=== PATIENT | male | born 1950 | race Caucasian/White ===

== ENCOUNTER → 2017-04-29 | Outpatient (CLI) | payer MEDICARE ==
[~2017-04-29] MED LIST: /METO25TAB PO; /WARF25TA PO; ACET50TA PO; BAYE325T12; FISH1200; MULTTAB22 PO; PRAV80TA2 PO; ULTR50TA PO; ZOFR4SOL PO
--- NOTE | 2017-04-29 14:50 | REP ---
MAXILLOFACIAL CT WITHOUT CONTRAST: HISTORY: Nasal polyps. There is complete opacification of the left maxillary sinus. There is erosion of the left uncinate process and partial erosion left middle nasal turbinate. Soft tissue density is present in the nasal passage at this level. Moderate mucosal thickening is present in the right maxillary sinus. The remaining sinuses are clear. Mucosal thickening involves the right ostiomeatal unit. The middle and inferior nasal turbinates are partially paradoxical. There is mild deviation of the nasal septum to the left. A spur is present arising from the left side of the nasal septum. The cribriform plate, medial dejesus of the orbits and optic canals are intact. There is aeration of the left anterior clinoid process. The carotid canals form a segment of the posterolateral dejesus of the sphenoid sinus. IMPRESSION: 1. There is complete opacification of the left maxillary sinus. There is associated erosion of the left uncinate process and partial erosion of the left middle nasal turbinate. Soft tissue density is present in the nasal passage at this level. This may represent a nasal polyp and mucosal thickening. The possibility of an antral choanal polyp cannot be excluded. 2. Right maxillary sinus mucosal thickening. Signed by Bal Correa MD 04/29/2017 02:54 P
== END ==
LOC: M RAD 13:42
PROVIDERS: ATTEND Otolaryngology
DX: J33.0 Polyp of nasal cavity (principal)

== ENCOUNTER → 2017-06-15 | Outpatient (CLI) | payer MEDICARE ==
--- NOTE | 2017-06-15 08:30 | REP ---
MAXILLOFACIAL CT WITHOUT CONTRAST: HISTORY: Chronic maxillary sinusitis. Mucosal thickening is present in the maxillary, ethmoid and right frontal sinuses. There is almost complete opacification of the maxillary sinuses. Minimal mucosal thickening is present in the ethmoid and right frontal sinuses. The remaining sinuses are clear. Mucosal thickening involves the ostiomeatal units. The uncinate processes are not completely seen. This is due to previous surgery or demineralization secondary to chronic sinusitis. The middle and inferior nasal turbinates are partially paradoxical. There is kailee bullosa of the middle nasal turbinates. There is minimal deviation of the nasal septum to the left. A spur is present arising from the left side of the nasal septum. The cribriform plate, medial dejesus of the orbits and optic canals are intact. There is aeration of the left anterior clinoid process. The carotid canals form a segment of the posterolateral dejesus of the sphenoid sinus. The sphenoid sinus septa insert into the internal carotid canal dejesus. There is thickening of the dejesus of the maxillary sinuses secondary to chronic sinusitis. IMPRESSION: Sinus mucosal thickening as described above. Signed by Bal Correa MD 06/15/2017 08:40 A
== END ==
LOC: M RAD 07:18
PROVIDERS: ATTEND Otolaryngology
DX: J32.0 Chronic maxillary sinusitis (principal)

== ENCOUNTER → 2017-11-30 | Outpatient (CLI) | payer MEDICARE ==
[2017-11-30 16:13] LABS: BASO % 0.7 % (0.0-1.0); EOS # 0.1 10^3/uL (0.0-0.50); EOS % 1.7 % (0.0-3.0); HEMATOCRIT 44.4 % (42.0-52.0); HEMOGLOBIN 15.1 g/dl (14.0-18.0); IMMATURE GRANULOCYTE % 0.5 % (0-3.0); LYMPH # 1.5 10^3/uL (1.5-4.5); LYMPH % 25.1 % (24.0-44.0); MEAN CORPUSCULAR HEMOGLOBIN 29.3 pg (27.0-33.0); MEAN CORPUSCULAR VOLUME 86.2 fl (80.0-96.0); MONO # 0.9 10^3/uL (0.0-0.8); MONO % 14.4 % (0.0-5.0); NEUTROPHILS # 3.4 10^3/uL (1.8-7.7); NEUTROPHILS % 57.6 % (36.0-66.0); PLATELET COUNT, AUTOMATED 232 10^3/uL (150-450); RED BLOOD COUNT 5.15 10^6/uL (4.30-6.10); RED CELL DISTRIBUTION WIDTH 12.7 % (11.5-14.5); WHITE BLOOD COUNT 5.9 10^3/uL (4.0-10.0)
[2017-11-30 16:27] LABS: URIC ACID 4.4 MG/DL (3.5-7.2)
== END ==
LOC: M WUC 11:30
DX: M19.041 Primary osteoarthritis, right hand (principal)
CPT/HCPCS: 84550

== ENCOUNTER 2017-12-09 07:05 | Day surgery (SDC) | payer MEDICARE ==
[2017-12-09] MEDS: LIDOCAINE 1% MDV 20ML VIAL SQ (07:50)
[2017-12-09] MEDS ORDERED: fentaNYL 250 MCG/5 ML INJECTION (J3010) As Ordered (08:03)
[2017-12-09] MEDS ORDERED: PROPOFOL 200 MG/20 ML VIAL As Ordered (08:03)
[2017-12-09] MEDS ORDERED: ROCURONIUM BROMIDE 50 MG/5 ML VIAL As Ordered (08:03)
[2017-12-09] MEDS ORDERED: MIDAZOLAM INJ 2 MG/2 ML VIAL (J2250) As Ordered (08:03)
[2017-12-09] MEDS ORDERED: LIDOCAINE 2% INJ 100 MG/5 ML SDV (FOR ANES.) As Ordered (08:03)
[2017-12-09] MEDS ORDERED: fentaNYL 100 MCG/2 ML INJECTION (J3010) As Ordered (08:05)
[2017-12-09] MEDS: LR 1,000 ML IV (08:05)
[2017-12-09] MEDS: EPINEPHrine 1MG/ML INJ 30ML MD-VIAL As Ordered (09:09)
[2017-12-09] MEDS: LIDOCAINE W/EPINEPHRINE 1% 20ML VIAL As Ordered (09:09)
[2017-12-09] MEDS: METHYLENE BLUE 0.5% (5MG/ML) 10 ML AMP (PROVAYBLUE)(Q9968 PER 1MG) As Ordered (09:09)
[2017-12-09] MEDS ORDERED: ePHEDrine SULFATE 25 MG/5 ML(5MG/ML) SYRINGE As Ordered (09:21)
[2017-12-09] MEDS ORDERED: ONDANSETRON 4MG/2ML VIAL (J2405) As Ordered ×2 (09:24→12:04)
[2017-12-09] MEDS ORDERED: METOCLOPRAMIDE INJ 10MG/2ML VIAL (J2765) As Ordered (09:24)
[2017-12-09] MEDS ORDERED: dexameTHASONE 4 MG/ML 1ML VIAL (J1100) As Ordered ×2 (09:24)
[2017-12-09] MEDS ORDERED: KETOROLAC 60 MG/2 ML VIAL (J1885) As Ordered (09:24)
[2017-12-09] MEDS ORDERED: NEOSTIGMINE 10 MG/10 ML VIAL (J2710) As Ordered (09:44)
[2017-12-09] MEDS ORDERED: GLYCOPYRROLATE INJ 0.2 MG/ML 2 ML VIAL As Ordered (09:44)
[2017-12-09] MEDS: SODIUM CHLORIDE 0.9% NASAL GEL 15MG (AYR) As Ordered (11:59)
[2017-12-09 12:15] LABS: BEDSIDE GLUCOSE 133 MG/DL (80-115)
[2017-12-09] MEDS ORDERED: METOCLOPRAMIDE INJ 10MG/2ML VIAL (J2765) IV (12:30)
[2017-12-09] MEDS ORDERED: LR 1,000 ML IV ×2 (12:30)
[2017-12-09] MEDS ORDERED: fentaNYL 100 MCG/2 ML INJECTION (J3010) IV (12:30)
[2017-12-09] MEDS ORDERED: PERCOCET 5MG/325MG TAB PO (12:30)
[2017-12-09] MEDS: ONDANSETRON 4MG/2ML VIAL (J2405) IV (12:50)
== END 2017-12-09 16:38 | disposition home or self-care (01) ==
LOC: M SDC 07:05
DX: J34.2 Deviated nasal septum (principal); J32.0 Chronic maxillary sinusitis; J32.2 Chronic ethmoidal sinusitis; J31.0 Chronic rhinitis; J33.9 Nasal polyp, unspecified; R09.82 Postnasal drip; R43.9 Unspecified disturbances of smell and taste; I10 Essential (primary) hypertension; K21.9 Gastro-esophageal reflux disease without esophagitis; I25.10 Atherosclerotic heart disease of native coronary artery without angina pectoris; I25.2 Old myocardial infarction; E78.5 Hyperlipidemia, unspecified; M12.9 Arthropathy, unspecified; M54.5 Low back pain; Z88.5 Allergy status to narcotic agent; Z79.899 Other long term (current) drug therapy; Z79.82 Long term (current) use of aspirin; Z86.14 Personal history of Methicillin resistant Staphylococcus aureus infection; Z95.5 Presence of coronary angioplasty implant and graft; Z96.653 Presence of artificial knee joint, bilateral
CPT/HCPCS: 30520

== ENCOUNTER 2020-09-10 15:23 | Emergency (ER) | payer MEDICARE ==
[~2020-09-10] VITALS: Ht 175.3 cm; Wt 99.3 kg
[~2020-09-10 15:23] MED LIST changes: -/METO25TAB PO; -/WARF25TA PO; -ACET50TA PO; +COUM1TAB18 PO; +MAPA500T17 PO; +METO1TAB87 PO; +RANI150T
[2020-09-10] MEDS ORDERED: ATOR80TA59 (15:39)
[2020-09-10] MEDS ORDERED: LISI2.5T2 (15:39)
[2020-09-10] MEDS ORDERED: METO1TAB32 (15:39)
--- NOTE | 2020-09-10 16:43 | REP ---
INDICATION: CVA COMPARISON: 09/02/2013 TECHNIQUE: Portable AP view of the chest FINDINGS: The mediastinum and cardiac silhouette are stable and within normal limits for portable technique. The lung castillo are clear without acute consolidation, effusion, or pneumothorax. Skeletal structures are intact. IMPRESSION: No acute cardiopulmonary process appreciated. <Electronically signed by Poncho Bowens > 09/10/20 1640
[2020-09-10] MEDS ORDERED: ISOVUE-370 76% 100ML VIAL As Ordered ONE (16:44)
[2020-09-10 16:56] LABS: BASO % 0.6 % (0.0-1.0); EOS # 0.1 10^3/uL (0.0-0.5); EOS % 3.8 % (0.0-3.0); HEMATOCRIT 41.9 % (42.0-52.0); HEMOGLOBIN 14.1 g/dl (13.5-17.5); LYMPH # 1.6 10^3/uL (1.5-5.0); LYMPH % 44.8 % (24.0-44.0); MEAN CORPUSCULAR HGB CONC 33.7 g/dl (32.0-36.5); MEAN CORPUSCULAR VOLUME 89.1 fl (80.0-96.0); MONO # 0.5 10^3/uL (0.0-0.8); MONO % 14.5 % (0.0-5.0); NEUTROPHILS # 1.3 10^3/uL (1.5-8.5); PLATELET COUNT, AUTOMATED 175 10^3/uL (150-450); WHITE BLOOD COUNT 3.5 10^3/uL (4.0-10.0)
[2020-09-10 17:00] LABS: PROTHROMBIN TIME 13.4 SECONDS (12.5-14.3)
[2020-09-10 17:01] LABS: PARTIAL THROMBOPLASTIN TIME 28.1 SECONDS (24.2-38.5)
[2020-09-10 17:10] LABS: CK-MB VALUE MASS 2.3 NG/ML (<3.6); CPK CREATINE PHOSPHOKINASE 114 U/L (39-308); MB/CK RELATIVE INDEX 2.02 (< OR =4); TROPONIN I < 0.02 NG/ML (< 0.10)
--- NOTE | 2020-09-10 17:14 | REPVR ---
PROCEDURE INFORMATION: Exam: CT Head Without Contrast Exam date and time: 09/10/2020 5:01 PM Age: 70 years old Clinical indication: Visual disturbance; Additional info: CVA - nursing interventions must not delay CT TECHNIQUE: Imaging protocol: Computed tomography of the head without contrast. Radiation optimization: All CT scans at this facility use at least one of these dose optimization techniques: automated exposure control; mA and/or kV adjustment per patient size (includes targeted exams where dose is matched to clinical indication); or iterative reconstruction. Other technique: STROKE PROTOCOL was implemented. COMPARISON: CT BRAIN LAB SINUSES 06/15/2017 7:39 AM FINDINGS: Brain: There is no evidence of infarct, damian-white matter differentiation is preserved. There is no hemorrhage or extra-axial collection. There is no mass. Cerebral ventricles: No ventriculomegaly. Bones/joints: Unremarkable. No acute fracture. Paranasal sinuses: There are postoperative changes of the sinuses. The sinuses are clear. Mastoid air cells: Visualized mastoid air cells are well aerated. Soft tissues: Unremarkable. IMPRESSION: No intracranial lesion or injury. ASSESSMENT: ASPECTS ([facility] Stroke Program Early CT Score) is 10. Electronically signed by: Ismael Dejesus On 09/10/2020 17:14:12 PM
--- NOTE | 2020-09-10 17:14 | REPVR ---
PROCEDURE INFORMATION: Exam: CT Angiography Neck With Contrast Exam date and time: 09/10/2020 5:01 PM Age: 70 years old Clinical indication: Visual disturbance; Additional info: Visual loss TECHNIQUE: Imaging protocol: Computed tomography angiography of the neck with intravenous contrast. 3D rendering (Not supervised by radiologist): MIP and/or 3D reconstructed images were created by the technologist. Radiation optimization: All CT scans at this facility use at least one of these dose optimization techniques: automated exposure control; mA and/or kV adjustment per patient size (includes targeted exams where dose is matched to clinical indication); or iterative reconstruction. Contrast material: ISOVUE 370; Contrast volume: 100 ml; Contrast route: INTRAVENOUS (IV); COMPARISON: No relevant prior studies available. FINDINGS: Limitations: Axial images are 2 mm. There are no thin slice images provided. Right common carotid artery: No stenosis. No dissection or occlusion. Right internal carotid artery: See "Left internal carotid artery" finding. Right external carotid artery: No occlusion or stenosis of the origin. Right vertebral artery: No stenosis. No dissection or occlusion. Left common carotid artery: No stenosis. No dissection or occlusion. Left internal carotid artery: There is severe, greater than 90%, stenosis of the proximal left internal carotid artery. The distal cervical left internal carotid artery is patent. However it is decreased in caliber compared to the contralateral carotid. This string sign indicates the hemodynamic significance of the stenosis. Left external carotid artery: No occlusion or stenosis of the origin. Left vertebral artery: The proximal left vertebral artery is partially obscured by contrast in adjacent venous structures. No stenosis or dissection as visualized. Bones/joints: No acute fracture. Soft tissues: Normal. No significant soft tissue swelling. IMPRESSION: 1. 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 2. No right carotid stenosis. 3. No vertebral artery stenosis REFERENCES: NASCET CRITERIA. The degree of internal carotid artery stenosis is based on NASCET criteria. Normal is no stenosis. Mild is less than 50% stenosis. Moderate is 50-69% stenosis. Severe is 70% to 99% stenosis. Total occlusion is no detectable patent lumen. Electronically signed by: Ismael Dejesus On 09/10/2020 17:14:26 PM
--- NOTE | 2020-09-10 17:14 | REP ---
INDICATION: CVA - Nursing interventions must not delay CT. COMPARISON: None. TECHNIQUE: Axial contrast-enhanced images were obtained from the skull base to the vertex with coronal reformations using 100 cc Isovue 370 intravenous contrast material. Maximal intensity projection and multiplanar re-formation images along with 3-D rendered imaging of the arterial vasculature obtained. FINDINGS: The [id number] and visualized vertebrobasilar system appear intact and normal. Vasculature to the bilateral hemispheres appear symmetric. No obvious arteriovenous malformation or aneurysm detected. Remainder of the examination appears essentially normal. IMPRESSION: Normal CT angiography of the head. No obvious arteriovenous malformation or aneurysm. Vasculature to the bilateral hemispheres and posterior fossa appear symmetric. <Electronically signed by Poncho Bowens > 09/10/20 [id number]
[2020-09-10 17:30] LABS: ALBUMIN 3.7 GM/DL (3.2-5.2); ALT/SGPT 38 U/L (12-78); BILIRUBIN,DIRECT 0.1 MG/DL (0.0-0.2); BILIRUBIN,TOTAL 0.4 MG/DL (0.2-1.0); TOTAL PROTEIN 7.1 GM/DL (6.4-8.2)
[2020-09-10] MEDS ORDERED: CLOPIDOGREL 300 MG TAB (PLAVIX) PO STA (17:43)
[2020-09-10 17:54] LABS: ERYTHROCYTE SEDIMENTATION RATE 9 mm/hr (0-20)
[2020-09-10 19:07] VITALS: BP 137/74
--- NOTE | 2020-09-11 00:36 | ECGEPIP ---
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
== END 2020-09-10 19:08 | disposition short-term general hospital (02) ==
LOC: M ED 15:23
DX: H54.7 Unspecified visual loss (principal); R00.1 Bradycardia, unspecified; I65.29 Occlusion and stenosis of unspecified carotid artery; G45.3 Amaurosis fugax; I25.10 Atherosclerotic heart disease of native coronary artery without angina pectoris; I10 Essential (primary) hypertension; E78.5 Hyperlipidemia, unspecified; Z79.82 Long term (current) use of aspirin; Z79.899 Other long term (current) drug therapy; Z88.5 Allergy status to narcotic agent
CPT/HCPCS: 70450; 70496; 70498; 71045; 80047; 80076; 82550; 82553; 84484; 85025; 85610; 85652; 85730; 86850; 86900; 86901; 93005; 93041; 94760; 99285; Q9967

== ENCOUNTER → 2020-11-16 | Outpatient (CLI) | payer MEDICARE ==
[~2020-11-16] MED LIST changes: +ATOR80TA59; +LISI2.5T2; +METO1TAB32
--- NOTE | 2020-11-16 17:34 | REP ---
INDICATION: AMAUROSIS FUGAX patient is status post left carotid endarterectomy August of 2020. COMPARISON: Comparison CT angiography of the neck 09/10/2020.. TECHNIQUE: Real-time ultrasound evaluation and duplex Doppler interrogation of the extracranial carotid vasculature is performed. FINDINGS: Antegrade flow is observed in both vertebral arteries. Right carotid: The right common carotid artery shows diffuse intimal thickening but is otherwise unremarkable. There mild mixed plaquing in the right carotid bulb and proximal ICA on two-dimensional scanning. Color flow and spectral Doppler interrogation are unremarkable on the right. Velocity chart right carotid: Right CCA PSV: 124 cm/S Right ICA PSV: 106 cm/S Right ICA EDV: 32 cm/S Right ECA PSV: 108 cm/S Right ICA/CCA ratio: 0.85 Left carotid: The left common carotid artery shows diffuse intimal thickening but is otherwise unremarkable. There is mild to moderate mixed plaquing in the left carotid bulb and proximal ICA on two-dimensional scanning. Color flow and spectral Doppler interrogation are unremarkable on the left. Velocity chart left carotid: Left CCA PSV: 125 cm/S Left ICA PSV: 104 cm/S Left ICA EDV: 25 cm/S Left ECA PSV: 137 cm/S Left ICA/CCA ratio: 0.83 IMPRESSION: Less than 50% category narrowing in the right internal carotid artery by Doppler velocity criteria. Less than 50% category narrowing in the left ICA by Doppler velocity criteria. <Electronically signed by Eduardo Cain > 11/16/20 [id number]
== END ==
LOC: M RAD 15:51
PROVIDERS: ATTEND Surgery Vascular Surgery
DX: G45.3 Amaurosis fugax (principal)

== ENCOUNTER → 2021-05-24 | Outpatient (CLI) | payer MEDICARE ==
[~2021-05-24] MED LIST changes: -LISI2.5T2; +LISI2.5T9
== END ==
LOC: M LABSMTC 11:21
PROVIDERS: ATTEND Ophthalmology
DX: Z01.812 Encounter for preprocedural laboratory examination (principal); Z20.822 Contact with and (suspected) exposure to COVID-19

== ENCOUNTER → 2023-03-03 | Outpatient (CLI) | payer MEDICARE | LOC: M RAD 10:37 | PROVIDERS: ATTEND Physician Assistant | DX: I70.203 Unspecified atherosclerosis of native arteries of extremities, bilateral legs (principal) ==